=== PATIENT | female | born 2000 | race Hispanic/Latino ===

== ENCOUNTER 2018-08-21 19:51 | Inpatient (IN) | payer OTHER ==
[2018-08-21] VITALS (23 sets, daily range): BP systolic 102–161; BP diastolic 55–95
[~2018-08-21] VITALS: Ht 170.2 cm; Wt 78.9 kg
[2018-08-21] MEDS ORDERED: LR 1,000 ML IV ONE (20:45)
[2018-08-21 20:47] LABS: HEMATOCRIT 42.2 % (36.0-47.0); HEMOGLOBIN 14.6 g/dl (12.0-15.5); MEAN CORPUSCULAR HEMOGLOBIN 31.9 pg (27.0-33.0); MEAN CORPUSCULAR HGB CONC 34.6 g/dl (32.0-36.5); MEAN CORPUSCULAR VOLUME 92.1 fl (80.0-96.0); PLATELET COUNT, AUTOMATED 215 10^3/uL (150-450); RED BLOOD COUNT 4.58 10^6/uL (4.00-5.40); WHITE BLOOD COUNT 15.4 10^3/uL (4.0-10.0)
[2018-08-21] MEDS ORDERED: PRENTAB9 PO (21:05)
[2018-08-21] MEDS ORDERED: LACTATED RINGER'S 1000 ML IV STA (21:17)
[2018-08-21] MEDS ORDERED: LR 1,000 ML IV SCH (21:17)
[2018-08-21] MEDS ORDERED: FENTANYL 2MCG/ML ROPIVACAINE 0.2% IN 0.9% NACL 100ML IVBAG As Ordered ONE (21:37)
--- NOTE | 2018-08-21 21:43 | HPEPDOC ---
Obstetrical History & Physical General Date of Admission Aug 21, 2018 at 20:32 History of Present Illness 17 yo presents to L&D ambulatory @ 39+5 by LMP([id number]) and 8+5 wk US on [id number]. Reports worsening CTXs since having her membranes stripped in office today. Denies DFM, LOF, and vaginal bleeding. Chief Complaint: Contractions, term Information Provided By: Patient Age: 17 : 4 Term: 1 Pre-term: 0 Abortions: 2 Livin Care Care: Good Care Number of Visits: 10 Dating Final EDC: Aug 23, 2018 Final EDC for Daily Update: Aug 23, 2018 Final EDC by: LMP, 1st trimester (US) LMP: Nov 16, 2017 1st Trimester Date: Jan 16, 2018 Weeks + Days: 8.5 Estimated Date of Confinement: Aug 23, 2018 EGA at Admission: 39.5 Antepartum Course Diagnos(e)s 1. RPR-pos 2.T.Pallidium-negative Height (inches): 67 Pre- weight (lbs.): 141 Admission Weight (lbs.): 173 Change in Weight (lbs.): 22 Past Medical History Past Obstetrical History #1: Past Obstetrical History: Multigravida Date of Delivery: Apr 07, 2017 Gestation: 40 Type of Delivery: Spontaneous Vaginal Del. 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 History: Spontaneous (x2) Past Medical History Medical History DENIES Surgical History: Denies/None Family History Significant Family History: No pertinent family hx Social History Marital Status: Family situation: Spouse/partner home Psychosocial History: No pertinent psych hx * Smoker: non-smoker Alcohol: Denies Drugs: denies Abuse Violence Screening Have you been hit/kicked/slapp: No Have you been sexually assault: No Imunizations Tdap status: current ([id number]) Influenza Status: current ([id number]) Allergies Coded Allergies: No Known Allergies (Unverified , 08/21/18) Medications Scheduled No.137/Iron/Folic Acd ( Vitamin Tablet) 1 Each Tablet, 1 TAB PO DAILY Physical Examination Physical Examination GENERAL: A & O x3 BREAST: . ABDOMEN: Gravid and non-tender to touch. FETUS: VTX by SVE and Oj. HEART RATE: RRR LUNGS: CTA EXTREMITIES: No edema. No clonus. DTRs +1 [id number] Laboratory Data 24H LABS Laboratory Tests 2 08/21/18 20:36: Nucleated Red Blood Cells % (auto) 0.0 08/21/18 20:41: Serology Scanned Report Hepatitis B Testing CBC/BMP Laboratory Tests 08/21/18 20:36 Red Blood Count 4.58, Mean Corpuscular Volume 92.1, Mean Corpuscular Hemoglobin 31.9, Mean Corpuscular Hemoglobin Concent 34.6, Red Cell Distribution Width 12.7 Pertinent Laboratoy Data Blood Type: O+ RBC Antibody Screen: Negative HIV: Negative Hepatitis B: Negative Hepatitis C: Unknown Rapid Plasma Reagin: Positive (T pallidum AB negative) Rubella: Immune Varicella: Nonreactive Chlamydia/Gonorrhea: Negative Group B Streptococcus: Negative Glucose Tolerance Test: 107 Anatomy Ultrasound Ultrasound Date: Apr 24, 2018 Placenta Location: Anterior Normal Anatomy: Yes Placenta Previa: No Estimated Weight (grams): 497 Steroid Therapy Steroid Therapy: No Vaginal Examination Dilation: 5 cm Effacement: 70% Station: -2 Cervical Consistency: other (nurse performed SVE) Assessment Heart Rate (FHR): 135 Variability: Moderate Accelerations: Positive Decelerations: None Tocometer Contractions: Yes Frequency: regular, other (Q 2-5 min ) Duration: less than 90 seconds Strength: palpated as moderate, resting tone palp/soft Multi-drug resistant Organism: No history of MDRO Assessment/Plan Assessment 17 yo @ 39+5. CAT I FHR Tracing. Active Labor. GBS negative Plan Admit and orient. Edger Technician and consent. Diet: clear liquid diet GBS negative Labs and IV per unit protocol. LR: Bolus 1000 mL, then at 125 mL/hr. Anticipate C-S as appropriate. VERITO BAUMANN CNM Aug 21, 2018 21:43
[2018-08-21] MEDS ORDERED: diphenhydrAMINE INJ 50MG/ML VIAL (J1200) IV PRN (22:45)
[2018-08-21] MEDS ORDERED: REFRIGERATOR IV KEYS XX PRN (22:45)
[2018-08-21] MEDS ORDERED: NALOXONE INJ 0.4 MG/1 ML VIAL (J2310) IV PRN (22:45)
[2018-08-21] MEDS ORDERED: EPIDURAL/PCA KEYS XX PRN (22:45)
[2018-08-21] MEDS ORDERED: ONDANSETRON 4MG/2ML VIAL (J2405) IV PRN (22:45)
[2018-08-21] MEDS ORDERED: LACTATED RINGER'S 1000 ML IV PRN (22:45)
[2018-08-21] MEDS ORDERED: EPIDURAL COMMENT XX SCH (22:45)
[2018-08-21] MEDS ORDERED: ePHEDrine SULFATE 25 MG/5 ML(5MG/ML) SYRINGE IV PRN (22:45)
[2018-08-21] MEDS ORDERED: FENTANYL/ROPIVACAINE/NACL BAG 100 ML EPIDURAL SCH (22:45)
[2018-08-21] MEDS ORDERED: OXYTOCIN DRIP 30 UNITS in APPROPRIATE DILUENT 1 EA IV SCH (23:45)
[2018-08-22] VITALS (11 sets, daily range): BP systolic 102–155; BP diastolic 55–76
[2018-08-22] MEDS ORDERED: OXYTOCIN DRIP 30 UNITS in APPROPRIATE DILUENT 1 EA IV SCH (02:10)
[2018-08-22] MEDS ORDERED: PROMETHAZINE 25 MG TAB PO PRN (02:15)
[2018-08-22] MEDS ORDERED: DOCUSATE SODIUM 100 MG CAP PO PRN (02:15)
[2018-08-22] MEDS ORDERED: ONDANSETRON 4MG/2ML VIAL (J2405) IV PRN (02:15)
[2018-08-22] MEDS ORDERED: MOM 30ML SUSPENSION UDC PO PRN (02:15)
--- NOTE | 2018-08-22 02:18 | DNPDOC ---
[facility] Delivery Note Delivery Note DATE OF DELIVERY: [id number] @ 0154 PREDELIVERY DIAGNOSIS: 39+3 weeks' gestation and labor. POST DELIVERY DIAGNOSIS: Delivered. PROCEDURE: RUG DYER HELPER: Verito Baumann CNM ANESTHESIA: epidural ESTIMATED BLOOD LOSS: 200 mL. FINDINGS: 8 pound 4 ounce male , Score 8/9, nuchal cord-none DELIVERY SUMMARY: Patient is a 17 yo G4 now P2022 who was admitted to labor and delivery for Active Labor @ 39+3. Progressed to c/c/+2 with epidural infusing, pitocin infusing and mild desire to push. Delivery was via of a viable male to a clean field; presented OA with no nuchal cord noted. Anterior shoulder(right) delivered with mild downward traction, then the posterior shoulder delivered with mild upward traction; remainder of corpus delivered spontaneously. Infant placed [id number] on mother's chest. Delayed cord clamping x 3 min, then cord clamped x 2 and cut by provider. Child had vigorous cry. Placenta delivered intact with 3 vessel cord approx 5 min later. Fundal massage applied, pitocin bolus initiated. Intact Mother and bonding well and stable in delivery room when this provider left. Anticipate routine PP course EBL-200 ml -8/9 VERITO BAUMANN CNM Aug 22, 2018 02:18
--- NOTE | 2018-08-22 03:48 | IPNPDOC ---
Text Note Date of Service The patient was seen on 08/22/18. NOTE [id number] @ 0330- Informed by RN that patient was still passing quite a few s mall clots. Pt assessed-noted to have approx 100 ml of clots on pads. 50 ml of clots removed from uterus. 1000 mcg of cytotec DE. Pt will stay on L&D for at minimum of an additional hour for monitoring. VS,Fishbone, I+O VS, Fishbone, I+O Laboratory Tests 08/21/18 20:36 Red Blood Count 4.58, Mean Corpuscular Volume 92.1, Mean Corpuscular Hemoglobin 31.9, Mean Corpuscular Hemoglobin Concent 34.6, Red Cell Distribution Width 12.7 Vital Signs Date Time Temp Pulse Resp B/P (MAP) Pulse Ox O2 Delivery O2 Flow Rate FiO2 08/22/18 02:51 55 18 115/74 (88) 08/22/18 00:19 98.1 I&O- Last 24 Hours up to 6 AM 08/22/18 06:00 Output Total 200 ml Balance -200 ml VERITO BAUMANN CNM Aug 22, 2018 03:48
[2018-08-22] MEDS ORDERED: miSOPROStol 200 MCG TAB (S0191) PR ONE (04:00)
[2018-08-22] MEDS: ACETAMINOPHEN 500 MG TAB PO PRN ×2 (05:58→17:37)
[2018-08-22] MEDS: IBUPROFEN 800 MG TAB PO PRN ×2 (10:07→20:15)
[2018-08-22] MEDS: PRENATAL VITAMINS CHEWABLE TABLET PO SCH (10:22)
[2018-08-23 05:16] VITALS: BP 117/85
[2018-08-23 05:27] LABS: HEMATOCRIT 38.3 % (36.0-47.0); HEMOGLOBIN 12.9 g/dl (12.0-15.5); MEAN CORPUSCULAR HEMOGLOBIN 31.6 pg (27.0-33.0); MEAN CORPUSCULAR HGB CONC 33.7 g/dl (32.0-36.5); MEAN CORPUSCULAR VOLUME 93.9 fl (80.0-96.0); PLATELET COUNT, AUTOMATED 216 10^3/uL (150-450); RED BLOOD COUNT 4.08 10^6/uL (4.00-5.40); WHITE BLOOD COUNT 14.3 10^3/uL (4.0-10.0)
--- NOTE | 2018-08-23 06:46 | IPNPDOC ---
Text Note Date of Service The patient was seen on 08/23/18. NOTE PPD2 States feeling well, pain controlled with prescribed meds. Baby bonding and feeding well. No heavy VB. Lochia slowing. Ambulatory. Tolerating PO without issues. Voiding spont. No CP/LP/SOB. VSSAF NAD A&O LE no C/C/E Ut at U-2, firm a/p: Doing well. Cont routine care. D/C today. Sessions Kathleen PUENTE, I+O Kathleen GUTIERREZ I+O Laboratory Tests 08/23/18 05:17 Red Blood Count 4.08, Mean Corpuscular Volume 93.9, Mean Corpuscular Hemoglobin 31.6, Mean Corpuscular Hemoglobin Concent 33.7, Red Cell Distribution Width 13.2 Vital Signs Date Time Temp Pulse Resp B/P (MAP) Pulse Ox O2 Delivery O2 Flow Rate FiO2 08/23/18 05:16 98.2 70 19 117/85 (96) 08/22/18 05:30 97 I&O- Last 24 Hours up to 6 AM 08/23/18 06:00 Output Total 400 ml Balance -400 ml SESSIONS,CHASIDY Francis MD Aug 23, 2018 06:46
--- NOTE | 2018-08-23 06:56 | DS.PDOC ---
Discharge Summary General Date of Admission Aug 21, 2018 at 20:32 Date of Discharge [id number] Discharge Summary ADMITTING DIAGNOSES: Active labor DISCHARGE DIAGNOSES: Same, HOSPITAL COURSE: Admitted and delivery uncomplicated, . course uncomplicated. DISCHARGE MEDICATIONS: Motrin, Lanolin, Tylenol DISCHARGE INSTRUCTIONS: Nothing in the vagina for 6 weeks. F/U in OBGYN clinic in 6-8 weeks. Sessions Vital Signs/I&Os Vital Signs Date Time Temp Pulse Resp B/P (MAP) Pulse Ox O2 Delivery O2 Flow Rate FiO2 08/23/18 05:16 98.2 70 19 117/85 (96) 08/22/18 05:30 97 I&O- Last 24 Hours up to 6 AM 08/23/18 05:59 Output Total 400 ml Balance -400 ml Laboratory Data Labs 24H Laboratory Tests 2 08/23/18 05:17: Nucleated Red Blood Cells % (auto) 0.0 CBC/BMP Laboratory Tests 08/23/18 05:17 Red Blood Count 4.08, Mean Corpuscular Volume 93.9, Mean Corpuscular Hemoglobin 31.6, Mean Corpuscular Hemoglobin Concent 33.7, Red Cell Distribution Width 13.2 Discharge Medications Scheduled No.137/Iron/Folic Acd ( Vitamin Tablet) 1 Each Tablet, 1 TAB PO DAILY, (Reported) Allergies Coded Allergies: No Known Allergies (Unverified , 08/21/18) SESSIONS,CHASIDY Francis MD Aug 23, 2018 06:56
[2018-08-23] MEDS ORDERED: MAPA500T2 PO (08:48)
[2018-08-23] MEDS ORDERED: IBUP-1114 PO (08:49)
[2018-08-23] MEDS ORDERED: COLA100C5 PO (08:58)
[2018-08-23] MEDS: PRENATAL VITAMINS CHEWABLE TABLET PO SCH (09:36)
[2018-08-23 12:34] VITALS: BP 112/71
== END 2018-08-23 15:15 | disposition home or self-care (01) | DRG 807 ==
LOC: M LDO 19:51 → M LDI 20:32 → M OBS 08-22 05:38
PROVIDERS: ADMIT Obstetrics & Gynecology; ATTEND Midwife
PROC: 10E0XZZ Delivery of Products of Conception, External Approach (ICD-10-PCS; principal; 2018-08-22)
DX: O80 Encounter for full-term uncomplicated delivery (principal); Z37.0 Single live birth; Z3A.39 39 weeks gestation of pregnancy